=== PATIENT | male | born 1995 | race Caucasian/White ===

== ENCOUNTER 2021-07-07 22:38 | Emergency (ER) | payer OTHER ==
[~2021-07-07] VITALS: Ht 188 cm; Wt 127.0 kg
[2021-07-07 22:57] LABS: ABSOLUTE EOSINOPHILS 0.1 thou/uL (0.0-0.7); ABSOLUTE MONOCYTES 1.2 thou/uL (0.0-1.2); ABSOLUTE NEUTROPHILS 7.6 thou/uL (1.6-8.1); BASOPHILS 0.4 %; EOSINOPHILS 0.8 %; HEMATOCRIT 46.1 % (42.0-52.0); HEMOGLOBIN 15.3 gm/dL (14.0-18.0); LYMPHOCYTES 10.2 %; MCH 27.1 pg (26.0-34.0); MCHC 33.2 g/dL (28.0-37.0); MCV 81.7 fL (80.0-100.0); MONOCYTES 11.7 %; NUCLEATED RBCS 0 /100WBC; PLATELET COUNT* 262 thou/uL (150-400); POLYS 76.9 %; RBC 5.64 mil/uL (4.50-6.00); RDW-CV 14.4 % (10.5-14.5); WBC 9.9 thou/uL (4.0-11.0)
[2021-07-07 23:06] LABS: CALCIUM 8.4 mg/dL (8.5-10.1); CREATININE 1.1 mg/dL (0.6-1.3); POTASSIUM 3.4 mmol/L (3.5-5.1)
[2021-07-07 23:11] LABS: ALBUMIN 4.1 g/dL (3.4-5.0); TOTAL BILIRUBIN 0.7 mg/dL (<0.1-1.0); TOTAL PROTEIN 7.9 g/dL (6.4-8.2)
[2021-07-07 23:48] LABS: URINE BILIRUBIN NEGATIVE (Negative); URINE BLOOD TRACE (Negative); URINE CLARITY CLEAR; URINE COLOR YELLOW; URINE GLUCOSE-RANDOM NEGATIVE (Negative); URINE KETONES NEGATIVE (Negative); URINE LEUKOCYTES NEGATIVE (Negative); URINE NITRITE NEGATIVE (Negative); URINE PROTEIN NEGATIVE (Negative); URINE SPECIFIC GRAVITY 1.015 (1.005-1.030)
[2021-07-08 00:48] VITALS: BP 109/62
--- NOTE | 2021-07-09 09:27 | EKG ---
[place] [address] ELECTROCARDIOGRAM REPORT Name: Anuel SIDDIQUI [id number] Admission: 07/07/21 Attend Phys: Discharge: 07/08/21 Date of : 89 Date of Service: 07/07/212241 Report #: [id number] THIS REPORT FOR: //name// [facility] ED Test Date: 2021-07-07 Test Time: 22:42:43 Pat Name: Anuel SIDDIQUI Department: Room: Gender: Transitional Care Nurse: [facility] : 1995 Requested By: Mani Caballero Order Number: [id number] Pranav MD: Dat Astudillo Measurements Intervals [place] Rate: 98 P: 65 [place]: 138 QRS: 67 QRSD: 109 T: -1 QT: 347 QTc: 444 Interpretive Statements Sinus rhythm Probable left atrial enlargement Borderline T wave abnormalities No previous ECG available for comparison Electronically Signed On 07-09-2021 9:26:46 COMPUTER SYSTEMS MANAGER by Dat Astudillo [email or web address] <ELECTRONICALLY SIGNED> By: Dat Astudillo MD, [facility] 07/09/21925 41 41 Dat Astudillo MD, [facility] /EPI
== END 2021-07-08 00:48 | disposition home or self-care (01) ==
LOC: M.ERS 22:38
PROVIDERS: Physician Assistant
DX: R07.89 Other chest pain (principal); Z20.822 Contact with and (suspected) exposure to COVID-19; R19.7 Diarrhea, unspecified; R11.10 Vomiting, unspecified; Z98.890 Other specified postprocedural states